=== PATIENT | male | born 1990 | race American Indian/Alaskan Native ===

== ENCOUNTER 2021-07-11 18:13 | Emergency (ER) | payer SELFPAY ==
[2021-07-11 18:30] VITALS: BP 129/86
--- NOTE | 2021-07-11 18:35 | Emergency Department Report ---
Chief Complaint: Nausea/Vomiting/Diarrhea Stated Complaint: FOOD POISONING Time Seen by Provider: 07/11/21 18:29 - HPI History of Present Illness: 31-year-old -[place] male presents to the emergency room stating he has concerns for food poisoning. Patient states that he had some Popeyes over a week ago and started having diarrhea daily. He denies any abdominal pain denies any vomiting able to eat and drink without any problems. Patient states he took Pepto-Bismol but still having diarrhea. Patient also comes in requesting STD evaluation as he has a lesion on his penis. Patient also states he has a lesion on his right foot. Patient has stable vital signs. - Exam Vital Signs: Vital Signs 07/11/21 18:29 Temperature 98 F Pulse Rate 71 Respiratory 20 Rate Blood Pressure 129/86 [Right] O2 Sat by Pulse 98 Oximetry Physical Exam: General: Awake, appropriately interactive, no acute distress. Neck: Supple. Full range of motion intact. Cardiovascular: Normal peripheral perfusion. Pulmonary: No respiratory distress. Patient is speaking normally without use of accessory muscles. Skin: Rash on left foot Neurological: No facial asymmetry. Speech is clear. Follows commands. Patient is alert and oriented. Musculoskeletal: Full range of motion, no crepitus. Able to bear weight and ambulate without difficulty. Distal neurovascular and motor/sensory function is intact. Psych: Cooperative. Appropriate mood and affect. MSE screening note: Focused history and physical exam performed. Due to findings the following was ordered: ED Medical Decision Making - Medical Decision Making 31-year-old -[place]ub[place] male presents to the emergency room stating he has concerns for food poisoning. Patient states that he had some Popeyes over a week ago and started having diarrhea daily. He denies any abdominal pain denies any vomiting able to eat and drink without any problems. Patient states he took Pepto-Bismol but still having diarrhea. Patient also comes in requesting STD evaluation as he has a lesion on his penis. Patient also states he has a lesion on his right foot. Patient has stable vital signs. Discussed with patient to follow-up with health department. Recommend [id number] Imodium AD and to increase his fluid intake and stay away from greasy spicy foods. ED Disposition for MSE Clinical Impression: Diarrhea Disposition: 01 HOME / SELF CARE / HOMELESS Is pt being admited?: No Does the pt Need Aspirin: No Condition: Stable Instructions: Food Choices to Help Relieve Diarrhea, Adult, Diarrhea, Adult, [id number] Additional Instructions: Patient to follow-up with health department. Recommend [id number] Imodium AD and to increase his fluid intake and stay away from greasy spicy foods. [facility] [Outside] - 3-5 Days [facility] [Outside] - 3-5 Days [facility] [Provider Group] - 3-5 Days Time of Disposition: 18:34
== END 2021-07-11 18:35 | disposition home or self-care (01) ==
LOC: ED 18:13
DX: R19.7 Diarrhea, unspecified (principal); L98.8 Other specified disorders of the skin and subcutaneous tissue
CPT/HCPCS: 99282